=== PATIENT | female | born 1970 | race Two or more races ===

== ENCOUNTER 2018-11-27 08:47 | Observation (INO) | payer OTHER ==
[~2018-11-27] VITALS: Ht 165.1 cm; Wt 87.1 kg
[~2018-11-27 08:47] MED LIST: CEFAZOLIN 1,000 MG ONE; GLYCOPYRROLATE 0.4 MG/2 ML, 2ML ONE; NEOSTIGMINE 1 MG/ML, 10ML ONE; PROPOFOL 10 MG/ML, 20ML ONE; ROCURONIUM 10MG/ML,5ML ONE; SODIUM CHLORIDE 0.9% PF 10ML ONE
[2018-11-27] MEDS ORDERED: GENTAMICIN 80 MG/2 ML ONE (09:08)
[2018-11-27] MEDS ORDERED: MIDAZOLAM 1 MG/ML, 2ML ONE ×2 (09:12→09:51)
[2018-11-27] MEDS ORDERED: FENTANYL PF 250 MCG/5ML ONE ×2 (09:13→09:51)
[2018-11-27] MEDS ORDERED: LACTATED RINGERS 1,000 ML IV SCH (09:27)
[2018-11-27] MEDS ORDERED: SULF1TAB24 PO (09:29)
[2018-11-27 09:34] LABS: CULTURE INDICATED? YES; HCG UR SG 1.025 (1.003-1.030); MICROSCOPIC INDICATED
[2018-11-27 09:41] VITALS: BP 157/91
[2018-11-27] MEDS ORDERED: GLYCOPYRROLATE 0.2MG/1ML, 5ML ONE (09:53)
[2018-11-27] MEDS ORDERED: CEFAZOLIN 1,000 MG ONE (09:53)
[2018-11-27] MEDS ORDERED: ONDANSETRON 2MG/ML, 2ML ONE (09:53)
[2018-11-27] MEDS ORDERED: NEOSTIGMINE 1 MG/ML, 10ML ONE (09:53)
[2018-11-27] MEDS ORDERED: ROCURONIUM 10MG/ML,5ML ONE (09:53)
[2018-11-27] MEDS ORDERED: DEXAMETHASONE 4 MG/ML, 1ML ONE (09:53)
[2018-11-27] MEDS ORDERED: PROPOFOL 10 MG/ML, 20ML ONE (09:53)
[2018-11-27] MEDS ORDERED: ONDANSETRON ODT 8 MG PO PRN (10:00)
[2018-11-27] MEDS ORDERED: MORPHINE SULFATE 4 MG/ML, 1ML IVPush PRN (10:00)
[2018-11-27] MEDS ORDERED: LABETALOL 5MG/ML, 20ML IV PRN (10:00)
[2018-11-27] MEDS ORDERED: HYDROmorphone 2 MG/ML, 1ML IVPush PRN (10:00)
[2018-11-27] MEDS ORDERED: OXYcodone 5 MG/5 ML ORAL.SOL UDC PO PRN (10:00)
[2018-11-27] MEDS ORDERED: HALOPERIDOL 5 MG/ML IV PRN (10:00)
[2018-11-27] MEDS ORDERED: FENTANYL PF 100 MCG/2ML IV PRN (10:00)
[2018-11-27] MEDS ORDERED: MEPERIDINE/PF 25MG/0.5ML IVPush PRN (10:00)
[2018-11-27] MEDS ORDERED: PROMETHAZINE 25 MG/ML, 1ML IV PRN (10:00)
[2018-11-27] MEDS ORDERED: ACETAMINOPHEN 325 MG TABLET PO PRN (10:00)
[2018-11-27] MEDS ORDERED: PROMETHAZINE 25 MG SUPP PR PRN (10:00)
[2018-11-27] MEDS ORDERED: PROMETHAZINE 25 MG/ML, 1ML IM PRN ×2 (10:00)
[2018-11-27] MEDS ORDERED: PROMETHAZINE 12.5 MG SUPP PR PRN (10:00)
[2018-11-27] MEDS ORDERED: hydrALAzine 20 MG/ML, 1ML IV PRN (10:00)
[2018-11-27] MEDS ORDERED: ONDANSETRON 2MG/ML, 2ML IV PRN ×2 (10:00→17:00)
[2018-11-27] MEDS ORDERED: LIDOCAINE-MPF 1%, 5ML ONE (11:31)
[2018-11-27] MEDS ORDERED: MIDAZOLAM 1 MG/ML, 5ML ONE (12:00)
[2018-11-27] MEDS ORDERED: FENTANYL PF 100 MCG/2ML ONE ×2 (12:00)
[2018-11-27] MEDS ORDERED: NALOXONE 1 MG/ML, 2ML ONE (12:01)
[2018-11-27] MEDS ORDERED: FLUMAZENIL 0.1 MG/1 ML, 5ML ONE (12:01)
[2018-11-27] MEDS ORDERED: CEFAZOLIN PMX 1GM/50ML 50 ML IVPB ONE (12:30)
[2018-11-27] MEDS ORDERED: CEFTRIAXONE 1,000 MG ONE (14:47)
[2018-11-27] MEDS ORDERED: OPIUM/BELLADONNA SUPP.RECT 16.2-60 MG PR PRN (17:00)
[2018-11-27] MEDS ORDERED: OXYcodone/APAP 5/325MG TABLET PO PRN (17:00)
[2018-11-27] MEDS ORDERED: HYDROmorphone 2 MG/ML, 1ML ONE (17:08)
[2018-11-27] MEDS ORDERED: PROMETHAZINE 25 MG/ML, 1ML ONE (17:08)
[2018-11-27 18:09] VITALS: BP 137/84
[2018-11-27] MEDS: SULFAMETH./TRIMETHOPRIM DS 800MG/160MG TABLET PO SCH (20:25)
[2018-11-27 23:47] VITALS: BP 151/89
[2018-11-28 04:33] VITALS: BP 147/76
[2018-11-28 07:53] VITALS: BP 130/70
[2018-11-28] MEDS: SULFAMETH./TRIMETHOPRIM DS 800MG/160MG TABLET PO SCH (08:07)
[2018-11-28] MEDS ORDERED: VISIPAQUE 270 MG/ML, 50ML BOTTLE ONE (12:55)
[2018-11-28 15:21] VITALS: BP 128/78
[2018-11-28] MEDS ORDERED: OXYC-302 PO (15:57)
== END 2018-11-28 16:30 | disposition home or self-care (01) ==
LOC: OUT 08:47 → ORIP 16:56 → 4NOR 17:54 → DCLOUNGE 11-28 16:09
PROVIDERS: ADMIT Urology; ATTEND Urology
DX: N20.0 Calculus of kidney (principal); N39.0 Urinary tract infection, site not specified; Z87.440 Personal history of urinary (tract) infections
CPT/HCPCS: 50081; 50433; 74425; 76942; 81001; 81025; 82360; 87077; 87086; 88300; 99156; 99157; C1727; C1729; C1751; C1758; C1769; C1894; C2617; C2625; C2627; G0378; J0690; J0696; J1100; J1170; J2250; J2405; J2550; J2704; J2710; J3010; J3490; J7120; Q9966; 87186; J1580; J2310